=== PATIENT | male | born 1965 | race Two or more races ===

== ENCOUNTER 2021-10-23 23:50 | Emergency (ER) | payer BC ==
[~2021-10-23] VITALS: Ht 175.3 cm; Wt 81.6 kg
--- NOTE | 2021-10-24 00:10 | NUR ---
TO ER BED 10. BIBWIFE C/O RIGHT ABD PAIN RADIATING TO BACK X 2 DAYS . 05/25 P/S. NOT RELEIVED BY OTC MEDS. DENIES CHEST PAIN OR SOB. CONNECTED TO MONITOR. AWAITING MD GODINEZ
[2021-10-24] MEDS ORDERED: KETOROLAC TROMETHAMINE INJ 30 MG/ML VIAL ONE (00:23)
[2021-10-24] MEDS ORDERED: ONDANSETRON HCL/PF 4 MG/2 ML VIAL ONE (00:23)
--- NOTE | 2021-10-24 00:31 | NUR ---
IV LINE ESTABLISHED RAC 20G BLOOD COLLECTED AND SENT TO LAB
[2021-10-24] MEDS: ONDANSETRON HCL/PF 4 MG/2 ML VIAL IVP ONE (00:39)
[2021-10-24] MEDS: KETOROLAC TROMETHAMINE INJ 30 MG/ML VIAL IV ONE (00:40)
[2021-10-24] MEDS: IV NS 0.9% 1,000 ML BAG IV ONE (00:40)
[2021-10-24 01:08] LABS: BASOPHILS % (AUTO) 0.6 % (0.0-2.0); EOSINOPHILS % (AUTO) 0.3 % (0.0-6.0); HEMATOCRIT 38 % (39-51); HEMOGLOBIN 12.8 g/dL (13.5-17.5); LYMPHOCYTES # (AUTO) 2.1 K/uL (0.8-4.8); LYMPHOCYTES % (AUTO) 32.4 % (20.0-44.0); MEAN CORPUSCULAR HGB CONC 34 g/dl (31.0-36.0); MEAN CORPUSCULAR VOLUME 89 fL (80-96); MONOCYTES # (AUTO) 0.5 K/uL (0.1-1.30); MONOCYTES % (AUTO) 7.1 % (2.0-12.0); NEUTROPHILS # (AUTO) 3.9 K/uL (1.8-8.9); NEUTROPHILS % (AUTO) 59.6 % (43.0-81.0); PLATELET COUNT (AUTO) 250 K/uL (150-450); RED BLOOD CELL COUNT(AUTO) 4.24 MIL/uL (4.5-6.0); WHITE BLOOD COUNT (AUTO) 6.5 K/uL (4.3-11.0)
[2021-10-24 01:19] LABS: BILIRUBIN,URINE NEGATIVE (NEGATIVE); COLOR,URINE YELLOW (YELLOW); LEUKOCYTE ESTERASE ,URINE NEGATIVE (NEGATIVE); NITRITE, URINE NEGATIVE (NEGATIVE); PROTEIN,URINE TRACE mg/dl (NEGATIVE); UGLUCOSE NEGATIVE (NEGATIVE); UROBILINOGEN,URINE 0.2 EU/dL (0.2)
[2021-10-24 01:20] LABS: CALCIUM, SERUM 8.6 mg/dL (8.5-10.1); CREATININE 1.2 mg/dL (0.6-1.3); POTASSIUM 3.7 mmol/L (3.5-5.1)
[2021-10-24 01:26] LABS: ALBUMIN 3.7 g/dL (3.4-5.0); BILIRUBIN,DIRECT 0.2 mg/dL (0.0-0.2); BILIRUBIN,TOTAL 1.4 mg/dL (0.2-1.0); TOTAL PROTEIN, SERUM 6.9 g/dL (6.4-8.2)
[2021-10-24] MEDS ORDERED: IBUP-1957 PO (01:32)
[2021-10-24] MEDS ORDERED: ONDA4TAB5 PO (01:32)
[2021-10-24] MEDS ORDERED: TAMS-12 PO (01:32)
[2021-10-24] MEDS ORDERED: HYDR-3972 PO (01:32)
--- NOTE | 2021-10-24 01:45 | NUR ---
IV removed. Catheter intact and site benign. Pressure and 4x4 applied to site. No bleeding noted.
--- NOTE | 2021-10-24 01:47 | NUR ---
Patient discharged to home in stable condition. Written and verbal after care instructions given. Patient verbalizes understanding of instruction.
[2021-10-24 01:49] VITALS: BP 159/70
[2021-10-24 09:21] LABS: RBC,URINE TOO NUMEROUS TO COUN /HPF (0-2); WBC,URINE 0-2 /HPF (0-3)
[2021-10-24 09:22] LABS: BACTERIA,URINE Few /HPF (None Seen); SQUAMOUS EPITHELIAL CELL,UR Few /HPF (None Seen)
== END 2021-10-24 01:49 | disposition home or self-care (01) ==
LOC: ER 23:56
DX: N20.0 Calculus of kidney (principal); F41.9 Anxiety disorder, unspecified; Z98.890 Other specified postprocedural states
CPT/HCPCS: 36415; 74176; 80048; 80076; 81001; 83690; 85025; 85730; 96361; 96374; 96375; 99284; J1885; J2405; J7030